=== PATIENT | male | born 1950 | race Caucasian/White ===

== ENCOUNTER 2022-03-04 09:21 | Outpatient (CLI) | payer OTHER, SELFPAY ==
[2022-03-04 19:50] LABS: PSA Screen* 0.76 ng/mL (0.10-4.00)
== END 2022-03-04 09:22 | disposition home or self-care (01) ==
LOC: LKVREF 09:23
PROVIDERS: PCP Family Medicine; Visit Provider Family Medicine
DX: Z00.00 Encounter for general adult medical examination without abnormal findings (principal); E78.5 Hyperlipidemia, unspecified; I10 Essential (primary) hypertension; Z12.5 Encounter for screening for malignant neoplasm of prostate
CPT/HCPCS: 84153

== ENCOUNTER 2023-10-07 09:08 | Outpatient (CLI) | payer OTHER, SELFPAY | END 2023-10-07 09:09 | disposition home or self-care (01) | LOC: NFLDREF 10-09 10:56 | PROVIDERS: PCP Family Medicine; Referring Provider Family Medicine; Visit Provider Family Medicine | DX: I10 Essential (primary) hypertension (principal); E78.5 Hyperlipidemia, unspecified; E78.00 Pure hypercholesterolemia, unspecified; Z82.49 Family history of ischemic heart disease and other diseases of the circulatory system; Z12.5 Encounter for screening for malignant neoplasm of prostate | CPT/HCPCS: 80053; 80061; 82607; G0103 ==

== ENCOUNTER 2025-04-13 13:02 | Outpatient (CLI) | payer OTHER, SELFPAY | END 2025-04-13 13:03 | disposition home or self-care (01) | PROVIDERS: PCP Family Medicine; Visit Provider Family Medicine | DX: Z01.818 Encounter for other preprocedural examination (principal); I25.10 Atherosclerotic heart disease of native coronary artery without angina pectoris; I10 Essential (primary) hypertension; E78.5 Hyperlipidemia, unspecified | CPT/HCPCS: 80053; 80061; G0103 ==